=== PATIENT | male | born 1950 | race African-American/Black ===

== ENCOUNTER 2019-03-17 01:58 | Emergency (ER) | payer SELFPAY ==
[~2019-03-17] VITALS: Ht 175.3 cm; Wt 102.9 kg
[~2019-03-17 01:58] MED LIST: ACET-2178 PO; ALPR0.5T PO; AMLO10TA80 PO; APIX5TAB PO; ATOR10TA PO; B25 PO; CLOT15CR2 TP; CYCL10TA7 PO; FERR324T4 PO; FLUT15.88 NS; GABA800T97 PO; HYDR-4001 PO; HYDR-4009 PO; LISI10TA5 PO; METH500T PO; NITR0.4T49 SL; NORT25CA PO; ONDA4TAB50 PO; OXYC-579 PO; P20 PO; PROT40 PO; SENN-170 PO; TERA5CAP4 PO
[2019-03-17] MEDS ORDERED: SULFAMETHOXAZOLE/TRIMETHOPRIM 800/160MG TABLET PO ONE (03:00)
[2019-03-17] MEDS ORDERED: KETOROLAC 60MG/2ML VIAL IM ONE (03:00)
[2019-03-17] MEDS ORDERED: CEPHALEXIN 250MG CAPSULE PO ONE (03:00)
[2019-03-17 03:32] VITALS: BP 137/65
== END 2019-03-17 03:30 | disposition home or self-care (01) ==
LOC: ER 01:58
DX: L03.311 Cellulitis of abdominal wall (principal); F17.210 Nicotine dependence, cigarettes, uncomplicated; Z71.6 Tobacco abuse counseling; G62.9 Polyneuropathy, unspecified; Z79.899 Other long term (current) drug therapy; Z88.6 Allergy status to analgesic agent; Z88.5 Allergy status to narcotic agent; Z91.010 Allergy to peanuts
CPT/HCPCS: 96372; 99283; 99406; J1885

== ENCOUNTER 2019-03-17 22:49 | Emergency (ER) | payer SELFPAY ==
[~2019-03-17] VITALS: Ht 175.3 cm; Wt 102.0 kg
[2019-03-17] MEDS ORDERED: IBUPROFEN 600MG TABLET PO ONE (23:45)
[2019-03-17] MEDS ORDERED: ACETAMINOPHEN 500MG TABLET PO ONE (23:45)
[2019-03-17] MEDS ORDERED: CEPHALEXIN 250MG CAPSULE PO ONE (23:45)
[2019-03-17] MEDS ORDERED: SULFAMETHOXAZOLE/TRIMETHOPRIM 800/160MG TABLET PO ONE (23:45)
[2019-03-18 00:31] VITALS: BP 138/86
== END 2019-03-18 00:15 | disposition home or self-care (01) ==
LOC: ER 22:49
DX: L03.311 Cellulitis of abdominal wall (principal); I11.0 Hypertensive heart disease with heart failure; I50.9 Heart failure, unspecified; M19.90 Unspecified osteoarthritis, unspecified site; J44.9 Chronic obstructive pulmonary disease, unspecified; E66.9 Obesity, unspecified; Z68.33 Body mass index [BMI] 33.0-33.9, adult; Z88.6 Allergy status to analgesic agent; Z91.010 Allergy to peanuts; Z88.5 Allergy status to narcotic agent; Z79.899 Other long term (current) drug therapy
CPT/HCPCS: 93005; 99284

== ENCOUNTER 2019-06-21 22:30 | Emergency (ER) | payer MEDICAID ==
[~2019-06-21] VITALS: Ht 175.3 cm; Wt 100.4 kg
[~2019-06-21 22:30] MED LIST changes: -ACET-2178 PO; -ATOR10TA PO; +ATOR40TA70 PO; -CLOT15CR2 TP; +GABA-531 PO; -GABA800T97 PO; +TOPUD PO
[2019-06-22] MEDS ORDERED: HYDROCODONE/ACETAMINOPHEN 5/325MG TABLET PO ONE (02:15)
[2019-06-22 05:00] VITALS: BP 138/91
== END 2019-06-22 05:37 | disposition home or self-care (01) ==
LOC: ER 22:34
DX: S09.8XXA Other specified injuries of head, initial encounter (principal); M25.562 Pain in left knee; W10.8XXA Fall (on) (from) other stairs and steps, initial encounter; Y93.01 Activity, walking, marching and hiking; Y92.018 Other place in single-family (private) house as the place of occurrence of the external cause; I11.0 Hypertensive heart disease with heart failure; I50.9 Heart failure, unspecified; E11.9 Type 2 diabetes mellitus without complications
CPT/HCPCS: 70450; 73562; 82962; 99284; Z7610

== ENCOUNTER 2019-07-08 03:16 | Emergency (ER) | payer MEDICAID ==
[~2019-07-08] VITALS: Ht 172.7 cm; Wt 95.0 kg
[~2019-07-08 03:16] MED LIST changes: +FLUT15.844 NS; -FLUT15.88 NS
[2019-07-08] MEDS ORDERED: ONDANSETRON HCL 4MG/2ML INJ IV STA (04:46)
[2019-07-08] MEDS ORDERED: MORPHINE SULFATE 4 MG/ML CPJ (NOT FOR IM USE) IV STA (04:46)
[2019-07-08] MEDS ORDERED: NITROGLYCERIN OINT 1GM/INCH UDPKT TD ONE (05:00)
[2019-07-08 06:08] LABS: BASOPHILS % 0.8 % (0.0-2.0); HEMATOCRIT. 50.4 % (42.0-52.0); HEMOGLOBIN. 16.4 g/dL (14.0-18.0); LYMPHOCYTES % 32.2 % (20.0-50.0); MEAN CORPUSCULAR HEMOGLOBIN 26.7 pg (28.0-32.0); MEAN CORPUSCULAR VOLUME 82.2 fL (80.0-94.0); MEAN PLATELET VOLUME 8.3 fl (7.4-10.4); MONOCYTES % 7.8 % (2.0-8.0); NEUTROPHILS % 57.2 % (40.0-76.0); PLATELET 309 x1000/uL (130-400); RED BLOOD CELL COUNT 6.13 mill/uL (4.7-6.1); RED CELL DISTRIBUTION WIDTH 14.4 % (11.6-14.6)
[2019-07-08 06:12] LABS: CHLORIDE 99 mEq/L (98-107)
[2019-07-08] MEDS ORDERED: DEXTROSE 50% WATER 50ML SYRINGE IV PRN (08:00)
[2019-07-08] MEDS ORDERED: NITROGLYCERIN 0.4MG TABLET SL SL PRN (08:00)
[2019-07-08] MEDS ORDERED: CLONIDINE 0.1MG TABLET PO PRN (08:00)
[2019-07-08] MEDS ORDERED: IPRATROPIUM/ALBUTEROL 0.5-3(2.5)MG/3ML NEB NEB PRN (08:00)
[2019-07-08] MEDS ORDERED: ZOLPIDEM TARTRATE 5MG TABLET PO PRN (08:00)
[2019-07-08] MEDS ORDERED: MAGNESIUM/ALUMINUM HYDROXIDE/SIMETHICONE 30ML UDC PO PRN (08:00)
[2019-07-08] MEDS ORDERED: DOCUSATE SODIUM 100MG CAPSULE PO PRN (08:00)
[2019-07-08] MEDS ORDERED: GUAIFENESIN 200MG/10ML SUGAR FREE UDC PO PRN (08:00)
[2019-07-08] MEDS ORDERED: ONDANSETRON HCL 4MG/2ML INJ IV PRN (08:00)
[2019-07-08] MEDS ORDERED: CLOPIDOGREL 75MG TABLET PO SCH (09:00)
[2019-07-08] MEDS ORDERED: BLOOD SUGAR DIAGNOSTIC STRIP TEST SCH (09:00)
[2019-07-08] MEDS ORDERED: FAMOTIDINE 20MG TABLET PO SCH (09:00)
[2019-07-08] MEDS ORDERED: METOPROLOL TARTRATE 25MG TABLET PO SCH (09:00)
[2019-07-08] MEDS ORDERED: CLOPIDOGREL 75MG TABLET PO NR (09:45)
[2019-07-08] MEDS ORDERED: METOPROLOL TARTRATE 25MG TABLET PO NR (09:45)
[2019-07-08] MEDS ORDERED: FAMOTIDINE 20MG TABLET PO NR (09:45)
[2019-07-08] MEDS: INSULIN LISPRO 100 UNITS/ML SUBCUT SCH ×2 (10:00→13:28)
[2019-07-08] MEDS ORDERED: INSULIN GLARGINE UD 100 UNITS/ML SYR SUBCUT SCH ×2 (10:00→10:30)
[2019-07-08] MEDS: ACETAMINOPHEN 325MG TABLET PO PRN ×2 (10:10→15:30)
[2019-07-08 10:41] LABS: *BARBITURATES SCREEN URINE NEGATIVE (NEGATIVE)
[2019-07-08 10:43] LABS: *AMPHETAMINES SCREEN URINE NEGATIVE (NEGATIVE); *BENZODIAZEPINES SCREEN URINE NEGATIVE (NEGATIVE); *COCAINE SCREEN URINE NEGATIVE (NEGATIVE)
[2019-07-08 10:44] LABS: CANNABINOID URINE SCREEN PRESUMTIVE POSITIVE (NEGATIVE); METHADONE URINE SCREEN NEGATIVE (NEGATIVE); OPIATES URINE SCREEN PRESUMTIVE POSITIVE (NEGATIVE); PHENCYCLIDINE URINE SCREEN NEGATIVE (NEGATIVE)
[2019-07-08] MEDS ORDERED: INSULIN LISPRO 100 UNITS/ML SUBCUT SCH (12:50)
[2019-07-08] MEDS ORDERED: GABAPENTIN 100MG CAPSULE PO SCH (16:15)
[2019-07-08 16:50] VITALS: BP 148/90
[2019-07-08] MEDS ORDERED: APIXABAN 5 MG TABLET PO SCH (18:00)
== END 2019-07-08 16:55 | disposition left against medical advice (07) ==
LOC: ER 03:16 → EDBEDREQTM 05:17 → EDBEDREQ 05:17 → ER 16:55 → CANBEDREQ 17:42
DX: R07.89 Other chest pain (principal); M25.562 Pain in left knee; E11.65 Type 2 diabetes mellitus with hyperglycemia; J44.9 Chronic obstructive pulmonary disease, unspecified; I82.409 Acute embolism and thrombosis of unspecified deep veins of unspecified lower extremity; I11.0 Hypertensive heart disease with heart failure; I50.9 Heart failure, unspecified; E87.1 Hypo-osmolality and hyponatremia; Z76.5 Malingerer [conscious simulation]; F12.10 Cannabis abuse, uncomplicated; Z79.4 Long term (current) use of insulin; Z91.19 Patient's noncompliance with other medical treatment and regimen; Z79.02 Long term (current) use of antithrombotics/antiplatelets; Z88.6 Allergy status to analgesic agent; Z79.899 Other long term (current) drug therapy; Z88.5 Allergy status to narcotic agent; Z91.010 Allergy to peanuts; W18.39XA Other fall on same level, initial encounter; Y93.89 Activity, other specified; Y92.89 Other specified places as the place of occurrence of the external cause; Y99.8 Other external cause status
CPT/HCPCS: 36415; 71045; 73562; 80053; 80061; 80305; 82962; 83036; 83880; 84484; 85025; 93005; 93970; 96372; 96374; 96375; 99284; J1815; J2270; J2405; Z7610

== ENCOUNTER 2020-07-26 23:00 | Emergency (ER) | payer MEDICAID ==
[~2020-07-26] VITALS: Ht 175.3 cm; Wt 115.0 kg
[~2020-07-26 23:00] MED LIST changes: -GABA-531 PO; +GABA-532 PO; +OXYC-485 PO; -OXYC-579 PO; -SENN-170 PO; +SENN-257 PO
[2020-07-27] MEDS ORDERED: KETOROLAC 60MG/2ML VIAL IM STA (00:13)
[2020-07-27] MEDS ORDERED: VISCOUS LIDOCAINE 2% 15 ML UDC PO STA (00:13)
[2020-07-27] MEDS ORDERED: MAGNESIUM/ALUMINUM HYDROXIDE/SIMETHICONE 30ML UDC PO STA (00:13)
[2020-07-27 02:07] LABS: BASOPHILS % 0.5 % (0.0-2.0); EOSINOPHILS % 0.1 % (0.0-5.0); HEMATOCRIT. 43.5 % (42.0-52.0); HEMOGLOBIN. 14.7 g/dL (14.0-18.0); LYMPHOCYTES % 15.1 % (20.0-50.0); MEAN CORPUSCULAR HEMOGLOBIN 27.1 pg (28.0-32.0); MEAN CORPUSCULAR VOLUME 80.3 fL (80.0-94.0); MONOCYTES % 3.9 % (2.0-8.0); NEUTROPHILS % 80.4 % (40.0-76.0); PLATELET 200 x1000/uL (130-400); RED BLOOD CELL COUNT 5.41 mill/uL (4.7-6.1); RED CELL DISTRIBUTION WIDTH 14.3 % (11.6-14.6)
[2020-07-27 02:14] LABS: CHLORIDE 105 mEq/L (98-107)
[2020-07-27 02:18] LABS: ETHANOL BLOOD < 10 mg/dL
[2020-07-27] MEDS ORDERED: MORPHINE SULFATE 4 MG/ML CPJ (NOT FOR IM USE) IV NR (03:00)
[2020-07-27] MEDS ORDERED: ASPIRIN 325MG EC TABLET PO NR (03:00)
[2020-07-27] MEDS ORDERED: HYDROCODONE/ACETAMINOPHEN 5/325MG TABLET PO PRN (08:30)
[2020-07-27] MEDS ORDERED: MORPHINE SULFATE 2 MG/ML CPJ (NOT FOR IM USE) IV PRN (08:30)
[2020-07-27] MEDS ORDERED: ACETAMINOPHEN 325MG TABLET PO PRN (08:30)
[2020-07-27] MEDS ORDERED: HYDRALAZINE 20MG/ML VIAL IV PRN (08:30)
[2020-07-27] MEDS ORDERED: LORAZEPAM 2MG/ML CPJ IV PRN (08:30)
[2020-07-27] MEDS ORDERED: ONDANSETRON HCL 4MG/2ML INJ IV PRN (08:30)
[2020-07-27] MEDS ORDERED: NA PHOS,M-B/NA PHOS,DI-BA ENEMA 118ML PR PRN (08:30)
[2020-07-27] MEDS ORDERED: MAGNESIUM/ALUMINUM HYDROXIDE/SIMETHICONE 30ML UDC PO PRN (08:30)
[2020-07-27] MEDS ORDERED: DIPHENHYDRAMINE 50MG/ML VIAL IV PRN (08:30)
[2020-07-27] MEDS ORDERED: ENOXAPARIN 40MG/0.4ML SYR SUBCUT SCH (08:30)
[2020-07-27] MEDS ORDERED: IPRATROPIUM/ALBUTEROL 0.5-3(2.5)MG/3ML NEB NEB PRN (08:30)
[2020-07-27] MEDS ORDERED: DEXTROSE 50% WATER 50ML SYRINGE IV PRN (08:30)
[2020-07-27] MEDS ORDERED: DOCUSATE SODIUM 100MG CAPSULE PO PRN (08:30)
[2020-07-27] MEDS ORDERED: CLONIDINE 0.1MG TABLET PO PRN (08:30)
[2020-07-27] MEDS ORDERED: GUAIFENESIN 200MG/10ML SUGAR FREE UDC PO PRN (08:30)
[2020-07-27] MEDS ORDERED: ENOXAPARIN 30MG/0.3ML SYR SUBCUT SCH (09:00)
[2020-07-27] MEDS: INSULIN LISPRO 100 UNITS/ML SUBCUT SCH ×2 (11:54→13:20)
[2020-07-27] MEDS: BLOOD SUGAR DIAGNOSTIC STRIP TEST SCH ×2 (11:56→13:00)
[2020-07-27] MEDS ORDERED: SODIUM CHLORIDE 0.9% INJ 3ML FLUSH IVF SCH (14:00)
[2020-07-27 14:01] VITALS: BP 154/87
[2020-07-27 14:11] LABS: CLARITY URINE CLEAR (CLEAR); COLOR URINE YELLOW (YELLOW); KETONES URINE TRACE (NEGATIVE); LEUKOCYTE ESTERASE URINE NEGATIVE (NEGATIVE); NITRITE URINE NEGATIVE (NEGATIVE); OCCULT BLOOD URINE NEGATIVE (NEGATIVE); PROTEIN URINE 3+ (NEGATIVE); SPECIFIC GRAVITY URINE 1.018 (1.005-1.030)
[2020-07-27 14:31] LABS: *AMPHETAMINES SCREEN URINE NEGATIVE (NEGATIVE); *BARBITURATES SCREEN URINE NEGATIVE (NEGATIVE); *BENZODIAZEPINES SCREEN URINE NEGATIVE (NEGATIVE); *COCAINE SCREEN URINE NEGATIVE (NEGATIVE); METHADONE URINE SCREEN NEGATIVE (NEGATIVE); OPIATES URINE SCREEN PRESUMTIVE POSITIVE (NEGATIVE); PHENCYCLIDINE URINE SCREEN NEGATIVE (NEGATIVE)
[2020-07-27 14:33] LABS: CANNABINOID URINE SCREEN NEGATIVE (NEGATIVE)
[2020-07-27] MEDS ORDERED: APIXABAN 5 MG TABLET PO SCH (17:00)
== END 2020-07-27 14:41 | disposition left against medical advice (07) ==
LOC: ER 23:00 → CANBEDREQ 07-28 13:01
DX: C25.9 Malignant neoplasm of pancreas, unspecified (principal); R79.89 Other specified abnormal findings of blood chemistry; E87.1 Hypo-osmolality and hyponatremia; E83.51 Hypocalcemia; F91.8 Other conduct disorders; I11.0 Hypertensive heart disease with heart failure; I50.9 Heart failure, unspecified; E11.9 Type 2 diabetes mellitus without complications; J44.9 Chronic obstructive pulmonary disease, unspecified; E66.9 Obesity, unspecified; Z68.37 Body mass index [BMI] 37.0-37.9, adult; Z79.899 Other long term (current) drug therapy; Z88.5 Allergy status to narcotic agent; Z88.6 Allergy status to analgesic agent; Z91.010 Allergy to peanuts
CPT/HCPCS: 36415; 80053; 80305; 80320; 81003; 82962; 83036; 83690; 83880; 84484; 85025; 93005; 96372; 96374; 96375; 96376; 99285; J1650; J1815; J1885; J2270; J2405; G0480

== ENCOUNTER 2020-08-10 20:35 | Inpatient (IN) | payer MEDICAID ==
[~2020-08-10] VITALS: Ht 177.8 cm; Wt 90.0 kg
[2020-08-10] MEDS ORDERED: ONDANSETRON HCL 4MG/2ML INJ IV STA (21:18)
[2020-08-10] MEDS ORDERED: MORPHINE SULFATE 4 MG/ML CPJ (NOT FOR IM USE) IV STA (21:18)
[2020-08-10] MEDS ORDERED: SODIUM CHLORIDE 0.9% 1,000 ML IV ONE (21:30)
[2020-08-10 22:03] LABS: BASOPHILS % 0.5 % (0.0-2.0); HEMATOCRIT. 43.4 % (42.0-52.0); LYMPHOCYTES % 8.4 % (20.0-50.0); MEAN CORPUSCULAR HEMOGLOBIN 26.1 pg (28.0-32.0); MEAN CORPUSCULAR VOLUME 80.6 fL (80.0-94.0); MEAN PLATELET VOLUME 7.6 fl (7.4-10.4); MONOCYTES % 4.4 % (2.0-8.0); NEUTROPHILS % 86.7 % (40.0-76.0); PLATELET 332 x1000/uL (130-400); RED BLOOD CELL COUNT 5.38 mill/uL (4.7-6.1); RED CELL DISTRIBUTION WIDTH 13.9 % (11.6-14.6)
[2020-08-10 22:04] LABS: CHLORIDE 93 mEq/L (98-107)
[2020-08-10 22:09] LABS: INR 1.1; PARTIAL THROMBOPLASTIN TIME 26.2 sec (23.4-31.0); PROTHROMBIN TIME 11.8 sec (9.6-11.0)
[2020-08-10] MEDS ORDERED: INSULIN REGULAR (HUMULIN R) 300UNITS/3ML VIAL SUBCUT ONE (22:45)
[2020-08-11] MEDS ORDERED: ONDANSETRON HCL 4MG/2ML INJ IV ONE (01:00)
[2020-08-11] MEDS ORDERED: AZITHROMYCIN 500 MG in DEXT 5% WATER 250 ML IV ONE (01:00)
[2020-08-11] MEDS ORDERED: HYDROMORPHONE HCL/PF 2MG/ML CPJ IV ONE (01:00)
[2020-08-11] MEDS ORDERED: CEFTRIAXONE 1 G PREMIX 50 ML IV ONE (01:00)
[2020-08-11] MEDS ORDERED: HYDROMORPHONE HCL/PF 2MG/ML CPJ IV PRN (05:15)
[2020-08-11 07:35] VITALS: BP 135/85
[2020-08-11] MEDS ORDERED: DEXTROSE 50% WATER 50ML SYRINGE IV PRN (08:30)
[2020-08-11] MEDS ORDERED: POTASSIUM CHLORIDE 20MEQ TABLET SR PO NR (08:30)
[2020-08-11] MEDS ORDERED: ONDANSETRON HCL 4MG/2ML INJ IV PRN (08:30)
[2020-08-11] MEDS ORDERED: PIPERACILLIN/TAZOBACTAM 3.375 G in DEXT 5% WATER 100 ML IV SCH (08:30)
[2020-08-11] MEDS ORDERED: ACETAMINOPHEN 325MG TABLET PO PRN (08:30)
[2020-08-11] MEDS ORDERED: PIPERACILLIN/TAZ 3.375G PREMIX 50 ML IV SCH (09:00)
[2020-08-11] MEDS ORDERED: BLOOD SUGAR DIAGNOSTIC STRIP TEST SCH (09:00)
[2020-08-11] MEDS ORDERED: INSULIN LISPRO 100 UNITS/ML SUBCUT SCH (09:00)
[2020-08-11] MEDS ORDERED: INSULIN GLARGINE UD 100 UNITS/ML SYR SUBCUT SCH (10:00)
[2020-08-11] MEDS ORDERED: METOCLOPRAMIDE HCL 10MG/2ML VIAL IV SCH (12:00)
== END 2020-08-11 11:35 | disposition left against medical advice (07) | DRG 243 ==
LOC: ER 20:35 → 7EST 08-11 01:03 → ENRESERV 08-11 08:29
PROVIDERS: ADMIT Internal Medicine; ATTEND Internal Medicine
DX: K21.9 Gastro-esophageal reflux disease without esophagitis (principal); J18.9 Pneumonia, unspecified organism; K29.70 Gastritis, unspecified, without bleeding; E11.43 Type 2 diabetes mellitus with diabetic autonomic (poly)neuropathy; K52.9 Noninfective gastroenteritis and colitis, unspecified; K27.9 Peptic ulcer, site unspecified, unspecified as acute or chronic, without hemorrhage or perforation; I10 Essential (primary) hypertension; Z20.822 Contact with and (suspected) exposure to COVID-19; Z85.07 Personal history of malignant neoplasm of pancreas; Z88.6 Allergy status to analgesic agent; Z88.5 Allergy status to narcotic agent; Z91.010 Allergy to peanuts; Z79.891 Long term (current) use of opiate analgesic; Z79.899 Other long term (current) drug therapy; Z79.1 Long term (current) use of non-steroidal anti-inflammatories (NSAID); E11.65 Type 2 diabetes mellitus with hyperglycemia; K31.84 Gastroparesis; E43 Unspecified severe protein-calorie malnutrition; Z68.28 Body mass index [BMI] 28.0-28.9, adult; E87.1 Hypo-osmolality and hyponatremia; E87.8 Other disorders of electrolyte and fluid balance, not elsewhere classified; E87.6 Hypokalemia
CPT/HCPCS: 36415; 71045; 74176; 80053; 82962; 83605; 83880; 84484; 85025; 86850; 86900; 87426; 93005; 96374; 99291; J0456; J0696; J1170; J1815; J2270; J2405; J7030; J7060